=== PATIENT | female | born 1965 | race Hispanic/Latino ===

== ENCOUNTER 2021-11-05 06:36 | Day surgery (SDC) | payer OTHER ==
[2021-10-30 11:16] LABS: BASOPHILS % (AUTO) 0.4 % (0.0-5.0); EOSINOPHILS % (AUTO) 1.6 % (0.0-8.0); HEMATOCRIT 45.3 % (36-48); LYMPHOCYTES % (AUTO) 34.5 % (21.0-51.0); MEAN CORPUSCULAR HEMOGLOBIN 31.7 pg (27.0-33.0); MEAN CORPUSCULAR HGB CONC 33.8 g/dL (32.0-36.0); MONOCYTES % (AUTO) 9.4 % (3.0-13.0); NEUTROPHILS % (AUTO) 53.7 % (40.0-77.0); PLATELET COUNT (AUTO) 243 K/uL (130-400); RED BLOOD CELL COUNT(AUTO) 4.82 MIL/uL (4.00-5.50); RED CELL DISTRIBUTION WIDTH 12.3 % (11.0-15.5); WHITE BLOOD COUNT (AUTO) 4.5 K/uL (4.8-10.8)
[2021-10-30 11:20] LABS: CREATININE 0.4 mg/dL (0.5-1.5); POTASSIUM 5.3 mmol/L (3.5-5.1)
[2021-11-04 13:20] VITALS: BP 151/63
[2021-11-05] VITALS (16 sets, daily range): BP systolic 98–123; BP diastolic 50–71
[~2021-11-05] VITALS: Ht 152.4 cm; Wt 58.7 kg
[~2021-11-05 06:36] MED LIST: AMLO-257 PO; BENA10TA77 PO; CEFAZOLIN SODIUM 1 GM VIAL IVP SCH; EMPA1TAB7 PO; LACTATED RINGERS 1000ML 1,000 ML IV SCH; MV-M1TAB20 PO; MVIT PO; PRAV20TA4 PO
[2021-11-05] MEDS: 0.9%NACL 1000ML 1,000 ML IV ONE ×2 (07:23→07:24)
[2021-11-05] MEDS ORDERED: CLINDAMYCIN IVPB 600MG/50ML 50 ML IV ONE (07:40)
[2021-11-05] MEDS ORDERED: LIDOCAINE PF 100MG/5ML (2%) SYRINGE 5ML ONE (09:32)
[2021-11-05] MEDS ORDERED: PROPOFOL 10 MG/ML 20ML VIAL IV ONE (09:32)
[2021-11-05] MEDS ORDERED: MIDAZOLAM HCL 1 MG/ML 2ML VIAL ONE (09:33)
[2021-11-05] MEDS ORDERED: ROCURONIUM 10MG/1ML SYR 10 MG/ML ML ONE (09:33)
[2021-11-05] MEDS ORDERED: FENTANYL CITRATE PF 50 MCG/1 ML 5ML AMP IV ONE (09:37)
[2021-11-05] MEDS ORDERED: DEXAMETHASONE SOD PHOSPHATE 10MG/ML 1ML VIAL ONE ×2 (09:59→11:21)
[2021-11-05] MEDS ORDERED: NEOSTIGMINE 5MG/5ML SYR IV ONE (11:16)
[2021-11-05] MEDS ORDERED: GLYCOPYRROLATE 1 MG/5 ML SYRINGE ONE (11:16)
[2021-11-05] MEDS ORDERED: ROPIVACAINE 0.5% 5MG/ML 30ML IJ ONE (11:20)
== END 2021-11-05 13:20 | disposition home or self-care (01) ==
LOC: DAH 06:36
PROVIDERS: ATTEND Orthopaedic Surgery
DX: M75.111 Incomplete rotator cuff tear or rupture of right shoulder, not specified as traumatic (principal); Z20.822 Contact with and (suspected) exposure to COVID-19; M75.01 Adhesive capsulitis of right shoulder; I10 Essential (primary) hypertension; E11.9 Type 2 diabetes mellitus without complications; E78.00 Pure hypercholesterolemia, unspecified; Z82.49 Family history of ischemic heart disease and other diseases of the circulatory system; Z83.3 Family history of diabetes mellitus; Z82.61 Family history of arthritis; Z82.5 Family history of asthma and other chronic lower respiratory diseases; Z90.710 Acquired absence of both cervix and uterus; Z79.899 Other long term (current) drug therapy; Z88.0 Allergy status to penicillin; Z98.890 Other specified postprocedural states
CPT/HCPCS: 29822; 36415 ×2; 64415; 76942; 80048; 82948 ×2; 84132; 85025; 87635; A4215; A4221; A4222; A4223; A4565; A4600; A4649 ×4; A4663; A4930 ×2; A5120; A6207; A6260; C9803; J1100 ×2; J2001; J2250; J2704; J2710; J2795; J3010; J3490 ×2; J7030; J7120; J0690